=== PATIENT | male | born 1930 | race Caucasian/White ===

== ENCOUNTER 2018-04-12 13:32 | Emergency (ER) | payer OTHER, MEDICARE ==
[~2018-04-12] VITALS: Ht 170.2 cm; Wt 75.8 kg
[~2018-04-12 13:32] MED LIST: ACTIVE-Q200 MG PO; AMOXICILLIN500 M3 PO; AUGMENTIN 875-1 EACH PO; COUMADIN5 M2 PO; DONEPEZIL HCL5 MG PO; JANTOVEN1 MG PO; LOSARTAN POTAS100 M1 PO; MAGNESIUM400 M1 PO; NAMENDA10 M2 PO; PRAVACHOL20 M2 PO; TOPROL XL50 M1 PO
[2018-04-12 13:48] VITALS: BP 111/64
--- NOTE | 2018-04-12 14:50 | ED MVC/FALL/TRAUMA COMPLAINT ---
History of Present Illness General Chief Complaint: Laceration Procedure Stated Complaint: FALL, LAC TO ARM Source: patient Exam Limitations: no limitations Vital Signs & Intake/Output Vital Signs & Intake/Output Vital Signs Date Time Temp Pulse Resp B/P B/P Pulse O2 O2 Flow FiO2 Mean Ox Delivery Rate 04/12 1348 98.1 65 20 111/64 98 Room Air Allergies Coded Allergies: NO KNOWN ALLERGIES (05/12/11) Reconcile Medications Amoxicillin 500 MG TABLET 1 TAB PO TID strep A pharyngitis Cephalexin (Keflex) 500 MG CAPSULE 1 CAP PO TID skin wound Donepezil HCl 5 MG TABLET 1 TAB PO DAILY DEMENTIA (Reported) Losartan Potassium 100 MG TABLET 1 TAB PO QAM BP (Reported) Magnesium Oxide (Magnesium) 400 MG CAPSULE 1 CAP PO QPM SUPPLEMENT (Reported) Memantine HCl (Namenda) 10 MG TABLET 1 TAB PO BID DEMENTIA (Reported) Metoprolol Succ XL (Toprol Xl) 50 MG TAB.ER.24H 1 TAB PO QAM BP (Reported) Pravastatin Sodium (Pravachol) 20 MG TABLET 1 TAB PO QPM CHOLESTEROL ( Reported) Ubiquinol (Active-Q) 200 MG CAPSULE 1 CAP PO QPM SUPPLEMENT (Reported) Warfarin Sodium (Coumadin) 5 MG TABLET 1 TAB PO DAILY dvt Triage Note: SLIPPED OFF THE BOTTOM STAIR CAUSING A LAC TO LEFT FOREARM. BLEEDING CONTROLLED. LAST TETANUS 6 WEEKS AGO Triage Nurses Notes Reviewed? yes Onset: Abrupt Duration: minute(s): Timing: single episode today Severity: moderate Injuries/Fall Location: upper extremity Method of Injury: fall Loss of Consciousness: no loss of consciousness HPI: 87 Y/O MALE PRESENTS TO THE ED AFTER A FALL LEADING TO A LACERATION ON THE LEFT FOREARM. PATIENT STATES THAT HE MISSED THE LAST STEP DOWN HIS STAIRS AND FELL ONTO HIS FOREARM, RESULTING IN A LACERATION FROM THE EDGE OF THE CONCRETE STAIR. PATIENT DENIES ANY OTHER INJURYS, LOC, OR STRIKING HIS HEAD. THE FALL WAS WITNESSED BY THE PATIENT'S , WHO COOBERATED THE STORY. NO PLEURITIC PAIN, BACK PAIN, NECK PAIN, PARESTHESIAS. (Bhavna CHAVES,Bhumi Cueto) Past History Travel History Traveled to [place] past 21 day No Medical History Any Pertinent Medical History? 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 No (Bhumi Ramirez) Review of Systems Review of Systems Constitutional: Reports: no symptoms. Eyes: Reports: no symptoms. Ears, Nose, Throat, Mouth: Reports: no symptoms. Respiratory: Reports: no symptoms. Cardiovascular: Reports: no symptoms. Gastrointestinal/Abdominal: Reports: no symptoms. Genitourinary: Reports: no symptoms. Musculoskeletal: Reports: see HPI. Skin: Reports: see HPI. Neurological/Psychological: Reports: no symptoms. All Other Systems: Reviewed and Negative (Bhumi Ramirez) Physical Exam Physical Exam General Appearance: well developed/nourished, no apparent distress, alert, awake Head: atraumatic, normal appearance Eyes: Bilateral: normal appearance. Ears, Nose, Throat, Mouth: hearing grossly normal Neck: normal inspection, supple, full range of motion, no midline tenderness Respiratory: no respiratory distress Cardiovascular: normal peripheral pulses Peripheral Pulses: 2+ radial (L) Back: normal inspection, normal range of motion, no vertebral tenderness Extremities: 3CM LACERATION TO LEFT FOREARM WITH FOREARM TENDERNESS, FROM OF FOREARM, WRIST, HAND, AND FINGERS AND SHOULDER WRIST, HAND, FINGERS, ELBOW, SHOULDER ARE NONTENDER Neurologic/Psych: awake, alert, oriented x 3 Skin: LACERATION MENTIONED ABOVE Core Measures ACS in differential dx? No CVA/TIA Diagnosis No Sepsis Present: No Sepsis Focused Exam Completed? No (Bhumi Ramirez) Progress Differential Diagnosis: abd injury, C/T/L spine injury, ext injury, LACERATION, FOREIGN BODY, FRACTURE Plan of Care: EMILIE GARCIA PA-C DISCUSSD Handoff with me in which x-rays are pending x-rays were resulted no osseous injury discussed results with patient He had no questions upon dischargePatient's laceration is deep, tendon muscle or visible however there is no injury to these tissues is detected. Patient has full range of motion. Laceration was irrigated extensively. Patient to begin antibiotics given deep wound. He was given or follow follow-up. He agrees with the plan of care. The patient was discussed with Dr. Jones who agrees with this plan. The patient was signed out to ANASTACIO tenorio pending forearm xrays. Hand-Off Endorsed To: Antonio Islas Endorsed Time: 1614 Pending: Xray (Bhavna CHAVES,Bhumi Cueto) Plan of Care: EMILIE GARCIA PA-C DISCUSSD Handoff with me in which x-rays are pending x-rays were resulted no osseous injury discussed results with patient He had no questions upon discharge Comments: PATIENT: ISRAEL BRASHER PRESENT AGE: 87 PATIENT ACCOUNT NO: [id number] : [birth year] LOCATION: [facility] ORDERING PHYSICIAN: Bhumi CHAVES SERVICE DATE: 04/12/18 EXAM TYPE: RAD - XRY-FOREARM, LEFT EXAMINATION: XR FOREARM, LEFT CLINICAL INFORMATION: Rule out fracture/foreign body. Status post fall with forearm laceration. COMPARISON: None TECHNIQUE: AP and lateral views of the left forearm were obtained. FINDINGS: There is no radial or ulnar fracture. The wrist and elbow joints are intact without fracture or subluxation. The alignment is maintained. No radiopaque foreign body is seen. Atheromatous calcifications are noted. IMPRESSION: No fracture or radiopaque foreign body. DICTATED BY: Yonatan Singh MD DATE/TIME DICTATED:04/12/181620 HOSPITAL LIBRARIAN:ALEXANDRA DATE/TIME TRANSCRIBED:04/12/181620 (Antonio Islas) Departure Departure Disposition: HOME OR SELF CARE Condition: Stable Clinical Impression Primary Impression: Fall Qualifiers: Encounter type: initial encounter Qualified Code: W19.XXXA - Unspecified fall, initial encounter Secondary Impressions: Laceration Referrals: Prateek Gandara MD Patient Has No Primary Care Dr (PCP/Family) Additional Instructions: Take full course of antibiotics. Monitor for signs of skin infection such as redness, swelling, warmth, increasing pain. Return in 7-10 days for removal of stitches. Return sooner if YOU have any worsening symptoms or symptoms of infection. Follow-up with orthopedic doctor. Please note that there might be incidental findings in your evaluation that are unrelated to the current emergency department visit. Please notify your primary care doctor about this emergency department visit in order to obtain and review all of the testing performed so that these incidental findings can be monitored as needed. If you had an x-ray performed, please understand that some fractures may not be seen on the initial set of x-rays. If your symptoms persist you might need a repeat set of x-rays to check for such a fracture. If you had a laceration evaluated, please understand that foreign bodies such as glass or wood may not be visible to the naked eye or on plain x-rays. If the wound becomes red, swollen, increasingly more painful or if there is any drainage from the wound, please have it reevaluated by a physician for the possibility of a retained foreign body. If you're unable to follow up as outlined in the discharge instructions please return to the emergency department. Thank you for choosing the [facility] Emergency Department for your care. It was a pleasure to serve you today. Departure Forms: Customer Survey General Discharge Information Prescriptions: Current Visit Scripts Cephalexin (Keflex) 1 CAP PO TID #21 CAP (Bhumi Ramirez) Procedures Laceration/Wound Repair Laceration/Wound Repair: Wound Location: LEFT FOREARM Wound's Depth, Shape: linear, subcutaneous Wound Length (cm): 3 Wound Explored: irrigated extensively Betadine Prep? Yes Anesthesia: 1% lidocaine Wound Repaired With: sutures Suture Size/Type: 4:0, nylon Sterile Dressing Applied: Yes Date of Last Tetanus: 04/12/18 Tetanus Status: up to date Progress: Procedure performed by PA student with my direct supervision, patient tolerated the procedure well. (Bhumi Ramirez)
[2018-04-12] MEDS ORDERED: KEFLEX500 M1 PO (15:46)
--- NOTE | 2018-04-12 16:27 | RADIOLOGY REPORT ---
EXAMINATION: XR FOREARM, LEFT CLINICAL INFORMATION: Rule out fracture/foreign body. Status post fall with forearm laceration. COMPARISON: None TECHNIQUE: AP and lateral views of the left forearm were obtained. FINDINGS: There is no radial or ulnar fracture. The wrist and elbow joints are intact without fracture or subluxation. The alignment is maintained. No radiopaque foreign body is seen. Atheromatous calcifications are noted. IMPRESSION: No fracture or radiopaque foreign body.
== END 2018-04-12 16:31 ==
LOC: ERH 13:32
DX: S51.812A Laceration without foreign body of left forearm, initial encounter (principal); W19.XXXA Unspecified fall, initial encounter; Y92.9 Unspecified place or not applicable; Y93.9 Activity, unspecified
CPT/HCPCS: 73090-LT; 90471; 90714; J2001

== ENCOUNTER 2018-04-24 07:12 | Emergency (ER) | payer OTHER ==
[~2018-04-24] VITALS: Ht 170.2 cm; Wt 76.2 kg
[~2018-04-24 07:12] MED LIST changes: +KEFLEX500 M1 PO
--- NOTE | 2018-04-24 07:16 | ED GENERAL ADULT ---
History of Present Illness General Chief Complaint: Suture Removal/Wound Recheck Stated Complaint: SUTURE REMOVAL Source: patient Exam Limitations: no limitations Vital Signs & Intake/Output Vital Signs & Intake/Output Vital Signs Date Time Temp Pulse Resp B/P B/P Pulse O2 O2 Flow FiO2 Mean Ox Delivery Rate 04/24 0718 98.1 64 18 121/63 97 Room Air Allergies Coded Allergies: NO KNOWN ALLERGIES (05/12/11) Reconcile Medications Amoxicillin 500 MG TABLET 1 TAB PO TID strep A pharyngitis Cephalexin (Keflex) 500 MG CAPSULE 1 CAP PO TID skin wound Donepezil HCl 5 MG TABLET 1 TAB PO DAILY DEMENTIA (Reported) Losartan Potassium 100 MG TABLET 1 TAB PO QAM BP (Reported) Magnesium Oxide (Magnesium) 400 MG CAPSULE 1 CAP PO QPM SUPPLEMENT (Reported) Memantine HCl (Namenda) 10 MG TABLET 1 TAB PO BID DEMENTIA (Reported) Metoprolol Succ XL (Toprol Xl) 50 MG TAB.ER.24H 1 TAB PO QAM BP (Reported) Pravastatin Sodium (Pravachol) 20 MG TABLET 1 TAB PO QPM CHOLESTEROL ( Reported) Ubiquinol (Active-Q) 200 MG CAPSULE 1 CAP PO QPM SUPPLEMENT (Reported) Warfarin Sodium (Coumadin) 5 MG TABLET 1 TAB PO DAILY dvt Triage Nurses Notes Reviewed? yes Onset: Abrupt Duration: minute(s): Timing: single episode today HPI: 87 yrear old male presents to the Emergency Depertment for suture removal of 11 sutures that were placed 10 days ago after falling down and missing a step on his deck. He has no complaints at this time. He has a clean sutured wound to the left forearm. Past History Medical History Any Pertinent Medical History? 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 No Sexual History Use of Protection Yes Sometimes Review of Systems Review of Systems Constitutional: Reports: no symptoms. EENTM: Reports: no symptoms. Respiratory: Reports: no symptoms. Cardiovascular: Reports: no symptoms. GI: Reports: no symptoms. Genitourinary: Reports: no symptoms. Musculoskeletal: Reports: no symptoms. Skin: Reports: no symptoms. Neurological/Psychological: Reports: no symptoms. Hematologic/Endocrine: Reports: no symptoms. Immunologic/Allergic: Reports: no symptoms. All Other Systems: Reviewed and Negative Physical Exam Physical Exam General Appearance: well developed/nourished, no apparent distress, alert, awake Head: atraumatic, normal appearance Eyes: Bilateral: normal appearance, PERRL, EOMI. Ears, Nose, Throat: normal pharynx, normal ENT inspection, hearing grossly normal Neck: normal inspection, full range of motion Respiratory: normal breath sounds, lungs clear Cardiovascular: regular rate/rhythm Peripheral Pulses: 4+ axillary (R), 4+ axillary (L) Gastrointestinal: soft, non-tender Back: normal inspection Extremities: normal inspection, HE HAS A CLEAN SUTURED WOUND TO LEFT FOREARM Neurologic/Psych: no motor/sensory deficits, awake, alert, oriented x 3 Skin: intact, normal color, warm/dry, sutures to anterior aspect of the LEFT forearm Core Measures ACS in differential dx? No CVA/TIA Diagnosis: No Sepsis Present: No Sepsis Focused Exam Completed? No Progress Differential Diagnoses I considered the following diagnoses in my evaluation of the patient: [Wound infection, foreign body, tendon injury, nerve injury] Plan of Care: Follow up when necessary. Initial ED EKG: none Departure Departure Disposition: HOME OR SELF CARE Condition: Stable Clinical Impression Primary Impression: Visit for suture removal Referrals: Patient Has No Primary Care Dr Departure Forms: Customer Survey General Discharge Information Comments Procedure The sutures were removed the PA student under my direct supervision. The patient has free range of motion to the left elbow, left wrist and hand. No evidence of neurovascular injury. The wound is clean and without any signs of infection. He will follow-up as needed. Critical Care Note Critical Care Note Critical Care Time: non-applicable
[2018-04-24 07:18] VITALS: BP 121/63
== END 2018-04-24 07:49 ==
LOC: ERH 07:12
DX: Z48.02 Encounter for removal of sutures (principal)